=== PATIENT | female | born 1945 | race Caucasian/White ===

== ENCOUNTER 2018-11-28 07:29 | Day surgery (SDC) | payer MEDICARE, BC ==
[2018-11-28] MEDS ORDERED: IV LACTATED RINGERS SOLUTION 1,000 ML BAG IV ONE (07:30)
[2018-11-28] MEDS ORDERED: LIDOCAINE HCL 2% 20 ML VIAL MC ONE (07:30)
[2018-11-28] MEDS ORDERED: IRR STERIL WATER FOR IRR 1000 ML BOTTLE IR ONE (07:30)
[2018-11-28] MEDS ORDERED: PROPOFOL 200 MG/20 ML BOTTLE IV ONE (07:30)
[2018-11-28] MEDS ORDERED: CITA20TA16 PO (16:31)
[2018-11-28] MEDS ORDERED: AMLO5TAB9 PO (16:31)
[2018-11-28] MEDS ORDERED: ATOR10TA PO (16:31)
[2018-11-28] MEDS ORDERED: BISA5TAB19 PO (16:31)
[2018-11-28] MEDS ORDERED: METO-356 PO (16:31)
[2018-11-28] MEDS ORDERED: ALPR1TAB7 PO (16:31)
== END 2018-11-28 12:00 | disposition home or self-care (01) ==
LOC: DS 07:29
PROVIDERS: ATTEND Surgery
DX: K63.5 Polyp of colon (principal); K59.09 Other constipation; K21.0 Gastro-esophageal reflux disease with esophagitis; K29.80 Duodenitis without bleeding; K44.9 Diaphragmatic hernia without obstruction or gangrene; K63.89 Other specified diseases of intestine; K62.4 Stenosis of anus and rectum; F55.2 Abuse of laxatives; K29.70 Gastritis, unspecified, without bleeding; I10 Essential (primary) hypertension; E78.00 Pure hypercholesterolemia, unspecified; J45.909 Unspecified asthma, uncomplicated; F32.9 Major depressive disorder, single episode, unspecified; F41.9 Anxiety disorder, unspecified; F15.90 Other stimulant use, unspecified, uncomplicated; Z87.440 Personal history of urinary (tract) infections; Z80.0 Family history of malignant neoplasm of digestive organs; Z80.1 Family history of malignant neoplasm of trachea, bronchus and lung; Z98.890 Other specified postprocedural states; Z87.891 Personal history of nicotine dependence; K64.8 Other hemorrhoids
CPT/HCPCS: 43239; 45380; J3490; J7120 ×2; 88342; A4217; A4663

== ENCOUNTER 2018-11-28 16:06 | Emergency (ER) | payer MEDICARE, BC ==
[~2018-11-28] VITALS: Ht 157.5 cm; Wt 59.9 kg
[2018-11-28] MEDS ORDERED: IV NORMAL SALINE 1000 ML BAG IV ONE (16:15)
[2018-11-28] MEDS ORDERED: ATOR10TA PO (16:31)
[2018-11-28] MEDS ORDERED: ALPR1TAB7 PO (16:31)
[2018-11-28] MEDS ORDERED: BISA5TAB19 PO (16:31)
[2018-11-28] MEDS ORDERED: METO-356 PO (16:31)
[2018-11-28] MEDS ORDERED: AMLO5TAB9 PO (16:31)
[2018-11-28] MEDS ORDERED: CITA20TA16 PO (16:31)
--- NOTE | 2018-11-28 16:31 | NUR ---
PT IS IN BED #1A. DR ALEMAN EVALUATED THE PT.
[2018-11-28 16:39] LABS: BASOPHILS # (AUTO) 0.1 K/uL (0.0-8.0); BASOPHILS % (AUTO) 0.5 % (0.0-2.0); EOSINOPHILS # (AUTO) 0.1 K/uL (0.0-0.7); EOSINOPHILS % (AUTO) 0.6 % (0.0-7.0); HEMATOCRIT 37.6 % (31.2-41.9); HEMOGLOBIN 12.4 g/dL (10.9-14.3); LYMPHOCYTES # (AUTO) 2.3 K/uL (20.0-40.0); LYMPHOCYTES % (AUTO) 16.7 % (20.5-51.5); MEAN CORPUSCULAR HEMOGLOBIN 29.2 uug (24.7-32.8); MEAN CORPUSCULAR HGB CONC 33 g/dL (32.3-35.6); MEAN CORPUSCULAR VOLUME 88.3 fL (75.5-95.3); MONOCYTES # (AUTO) 0.9 K/uL (2.0-10.0); MONOCYTES % (AUTO) 6.3 % (0.0-11.0); NEUTROPHILS # (AUTO) 10.4 K/uL (1.8-8.9); NEUTROPHILS % (AUTO) 75.9 % (38.5-71.5); PLATELET COUNT (AUTO) 260 K/uL (179-408); RED BLOOD CELL COUNT(AUTO) 4.26 MIL/uL (3.63-4.92); WHITE BLOOD COUNT (AUTO) 13.8 K/uL (3.8-11.8)
[2018-11-28 16:47] LABS: CARBON DIOXIDE 27 mmol/L (21-32); CHLORIDE 107 mmol/L (98-107); GLUCOSE 137 mg/dL (74-106); POTASSIUM 3.3 mmol/L (3.5-5.1); UREA NITROGEN, BLOOD 24 mg/dL (7-18)
[2018-11-28 16:52] LABS: ALANINE AMINOTRANSFERASE 13 U/L (14-59); ALKALINE PHOSPHATASE 57 U/L (50-136); ASPARTATE AMINOTRANSFERASE 14 U/L (15-37); BILIRUBIN,DIRECT 0.2 mg/dL (0.0-0.2); BILIRUBIN,TOTAL 0.8 mg/dL (0.2-1.0); LIPASE 139 U/L (73-393); TOTAL PROTEIN, SERUM 6.9 g/dL (6.4-8.2)
[2018-11-28] MEDS ORDERED: ONDANSETRON IV *ER 4 MG/2 ML VIAL IV ONE (18:00)
[2018-11-28] MEDS ORDERED: ONDANSETRON 4 MG/2 ML VIAL ONE (18:07)
--- NOTE | 2018-11-28 18:40 | NUR ---
PT WAS D/C'D TO HOME AFTER DR RAMON AND DR ALEMAN EVALUATION. D/C INSTRUCTIONS GIVEN TO THE PT AND TO HER .
[2018-11-28 18:43] VITALS: BP 108/65
== END 2018-11-28 18:44 | disposition home or self-care (01) ==
LOC: ER 16:06
DX: K91.840 Postprocedural hemorrhage of a digestive system organ or structure following a digestive system procedure (principal); R11.10 Vomiting, unspecified; Z88.5 Allergy status to narcotic agent; Z79.899 Other long term (current) drug therapy
CPT/HCPCS: 36415; 80048; 80076; 83690; 84484; 85025; 85730; 86850; 86900; 86901; 93005; 96361; 96374; 99284; J2405; 70030-TC; A4663; J7030